=== PATIENT | female | born 2000 | race American Indian/Alaskan Native ===

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

== ENCOUNTER 2018-05-09 21:57 | Emergency (ER) | payer MEDICAID, OTHER ==
[2018-05-09 21:57] VITALS: BMI 24.3
[2018-05-09 22:09] VITALS: BP 132/78; PULSE 82; RESP 20; TEMP 99.2; O2SAT 100
[2018-05-09 22:28] LABS: HCG,QUALITATIVE URINE NEGATIVE (NEGATIVE)
[2018-05-09 22:30] LABS: SQUAMOUS EPITHIAL 3 /hpf (0-5); URINE AMORPHOUS SEDIMENT RARE /ul (<OCC); URINE BILIRUBIN NEGATIVE (NEGATIVE); URINE BLOOD NEGATIVE (NEGATIVE); URINE CLARITY Hazy (Clear); URINE COLOR Yellow (YELLOW); URINE GLUCOSE (UA) NORMAL (Normal); URINE LEUKOCYTE ESTERASE NEG Leu/uL (Negative); URINE PROTEIN NEGATIVE (NEGATIVE); URINE UROBILINOGEN NORMAL mg/dL (0.2-1.0)
--- NOTE | 2018-05-09 22:46 | C.PDOC ---
History Of Present Illness 18 year old female presents to the ER with a complaint of right lower back pain for the past 2 days. Patient states she has Hx of UTI and is concerned she may have one now. Denies hematuria, dysuria, vaginal complaints, fever, nausea, vomiting, or abdominal pain. Time Seen by Provider: 05/09/18 22:22 Chief Complaint (Nursing): Female Genitourinary History Per: Patient History/Exam Limitations: no limitations Onset/Duration Of Symptoms: Days Current Symptoms Are (Timing): Still Present Quality Of Discomfort: Unable To Describe Exacerbating Factor(s): Movement Recent travel outside of the [place]: No Past Medical History Reviewed: Historical Data, Nursing Documentation, Vital Signs Vital Signs: Last Vital Signs Temp 99.2 F 05/09/18 22:06 Pulse 82 05/09/18 22:06 Resp 20 05/09/18 22:06 BP 132/78 05/09/18 22:06 Pulse Ox 100 05/09/18 23:53 Family History: States: Unknown Family Hx - Social History Hx Tobacco Use: No Hx Alcohol Use: No Hx Substance Use: Yes (MARIJUANA USE) - Immunization History Hx Tetanus Toxoid Vaccination: Yes Hx Influenza Vaccination: No Hx Pneumococcal Vaccination: No Review Of Systems Constitutional: Negative for: Fever, Chills Gastrointestinal: Negative for: Nausea, Vomiting, Abdominal Pain Genitourinary: Negative for: Dysuria, Hematuria, Vaginal Discharge, Vaginal Bleeding Musculoskeletal: Positive for: Back Pain (Right lower) Physical Exam - Physical Exam Appears: Non-toxic Skin: Normal Color, Warm, Dry Head: Atraumatic, Normacephalic Eye(s): bilateral: Normal Inspection Oral Mucosa: Moist Gastrointestinal/Abdominal: Soft, No Tenderness Back: No CVA Tenderness, Paraspinal Tenderness (Right lumbar) Pelvic: Other (pt refused) Extremity: Normal ROM (x4) Neurological/Psych: Oriented x3, Normal Speech Gait: Steady ED Course And Treatment O2 Sat by Pulse Oximetry: 100 (Room air) Pulse Ox Interpretation: Normal Progress Note: UA ordered, results were within normal limits, urine culture sent. Patient is resting in comfortably in no acute distress, afebrile, vitals are stable, will discharge with instructions to follow up with PMD or return if symptoms of UTI occur. Disposition Counseled Patient/Family Regarding: Diagnosis, Need For Followup - Disposition Referrals: [facility] [Outside] Disposition: HOME/ ROUTINE Disposition Time: 22:44 Condition: STABLE Additional Instructions: Please follow up with PMD or in clinic Take all medications as directed Return to ER if burning on urination, blood when urinating, fever, vomiting, abdominal pain or worse Prescriptions: Ibuprofen [Motrin] 600 mg PO Q6H #20 tab Instructions: Low Back Pain (DC) Forms: [employer] (Ethiopian) - Clinical Impression Clinical Impression: Back pain - PA / BISTRO SERVER / Resident Statement MD/DO has reviewed & agrees with the documentation as recorded. - Scribe Statement The provider has reviewed the documentation as recorded by the Scribnico Mantilla All medical record entries made by the Temo were at my direction and personally dictated by me. I have reviewed the chart and agree that the record accurately reflects my personal performance of the history, physical exam, medical decision making, and the department course for this patient. I have also personally directed, reviewed, and agree with the discharge instructions and disposition.
== END 2018-05-09 22:53 | disposition home or self-care (01) ==
LOC: C.ER 21:57
DX: M54.5 Low back pain (principal)

== ENCOUNTER 2018-05-20 14:22 | Emergency (ER) | payer MEDICAID ==
[2018-05-20 14:22] VITALS: BMI 24.3
[2018-05-20 15:08] VITALS: BP 142/81; PULSE 71; RESP 18; TEMP 98.7; O2SAT 100
--- NOTE | 2018-05-20 15:49 | C.PDOC ---
History Of Present Illness 18yo female, comes to ER with complaints of nasal congestion, throat pain and a dry cough. She also reports a subjective fever and feels as if she has a "sinus infection." Otherwise, she denies any chest pain, shortness of breath or abdominal pain and offers no other medical complaints. Time Seen by Provider: 05/20/18 15:10 Chief Complaint (Nursing): ENT Problem History Per: Patient History/Exam Limitations: None Onset/Duration Of Symptoms: Hrs Current Symptoms Are (Timing): Still Present Quality (Mouth/Throat): Other (throat pain and dry cough) Past Medical History Reviewed: Historical Data, Nursing Documentation, Vital Signs Vital Signs: Last Vital Signs Temp 98.7 F 05/20/18 15:04 Pulse 71 05/20/18 15:04 Resp 18 05/20/18 15:04 BP 142/81 05/20/18 15:04 Pulse Ox 100 05/20/18 17:29 Family History: States: Unknown Family Hx - Social History Hx Tobacco Use: No Hx Alcohol Use: No Hx Substance Use: Yes - Immunization History Hx Tetanus Toxoid Vaccination: No Hx Influenza Vaccination: No Hx Pneumococcal Vaccination: No Review Of Systems Constitutional: Positive for: Fever ENT: Positive for: Nose Discharge (clear), Nose Congestion, Throat Pain Respiratory: Positive for: Cough (dry ) Physical Exam - Physical Exam Appears: Non-toxic, No Acute Distress Skin: Normal Color, Warm, Dry Head: Normacephalic, Other (mild bilateral frontal sinus tenderness) Eye(s): bilateral: Normal Inspection, PERRL, EOMI Ear(s): Bilateral: Normal Nose: Discharge (clear), Other (congestion) Throat: Erythema (mild), No Exudate, Other (enlarged tonsils) Neck: Normal ROM, Supple Chest: Symmetrical, No Deformity Cardiovascular: Rhythm Regular Respiratory: Normal Breath Sounds, No Rales, No Rhonchi, No Wheezing Gastrointestinal/Abdominal: Soft, No Tenderness Extremity: Normal ROM (x4), No Tenderness, No Swelling Neurological/Psych: Oriented x3, Normal Speech, Normal Cognition, Normal Motor, Normal Sensation ED Course And Treatment O2 Sat by Pulse Oximetry: 100 (RA) Pulse Ox Interpretation: Normal Medical Decision Making Medical Decision Making: Impression: Cough, nasal congestion Plan: -- Motrin 600mg PO -- Upreg POC UPreg test negative. On reassessment, patient reports improvement in symptoms and is stable for discharge home. Instructed to take medications as prescribed and to follow up with PMD in 2-3 days. Disposition Counseled Patient/Family Regarding: Diagnosis, Need For Followup, Rx Given - Disposition Referrals: [facility] [Outside] Disposition: HOME/ ROUTINE Disposition Time: 15:46 Condition: GOOD Additional Instructions: Please take ibuprofen for pain everry 6 hours if needed. Take ClaritinD As prescribed Drink increase fluids. Follow up in medical clinic. . Prescriptions: Ibuprofen [Motrin] 600 mg PO TID #30 tab Loratadine/Pseudoephedrine [Claritin-D 24 Hour Tablet] 1 each PO DAILY #10 tab.er.24h Instructions: Cough, Runny Nose, and the Common Cold (DC) Forms: [employer] (Mongolian), General Discharge Instructions - Clinical Impression Clinical Impression: Upper respiratory infection - PA / WOOD COATER / Resident Statement / has reviewed & agrees with the documentation as recorded. - Scribe Statement The provider has reviewed the documentation as recorded by the Temo Florez Do All medical record entries made by the Scribe were at my direction and personally dictated by me. I have reviewed the chart and agree that the record accurately reflects my personal performance of the history, physical exam, medical decision making, and the department course for this patient. I have also personally directed, reviewed, and agree with the discharge instructions and disposition.
== END 2018-05-20 15:53 | disposition home or self-care (01) ==
LOC: C.ER 14:22
DX: J06.9 Acute upper respiratory infection, unspecified (principal)

== ENCOUNTER 2018-11-22 08:01 | Emergency (ER) | payer MEDICAID ==
[2018-11-22 08:01] VITALS: BMI 24.3
[2018-11-22 08:07] VITALS: RESP 18; O2SAT 100
[2018-11-22] MEDS ORDERED: cefTRIAXone (Rocephin) 250 mg Inj IM STA (08:42)
--- NOTE | 2018-11-22 08:42 | C.PDOC ---
History Of Present Illness 18 year old female presents to the ED for evaluation of persistent vaginal discharge associated with occasional left-sided flank pain for 4 weeks. The patient describes the discharge as brown and foul smelling. She notes prior MECHANICAL SERVICE REPRESENTATIVE visit for the same symptoms where she was prescribed Flagyl 1 week ago, notes no improvement or change in symptoms. Denies unprotected sex, vaginal bleeding, fever, chills, and any other associated symptoms. PERSIST VAG DC X 4 WEEKS. BROWN, FOUL SMELLING. SAW OBGYN FOR SAME, SP FLAGYL X 1 WEEK BUT NO IMPROVE OR CHANGE IN SX. +ASSOC OCC L FLANK PAIN. HO UNPROTECTED SEX. NO OTHER ASSOC SX EXAM NEG Time Seen by Provider: 11/22/18 08:14 Chief Complaint (Nursing): Female Genitourinary History Per: Patient History/Exam Limitations: no limitations Onset/Duration Of Symptoms: Days (x4 weeks), Persistent Current Symptoms Are (Timing): Still Present Recent travel outside of the [place]: No Past Medical History Reviewed: Historical Data, Nursing Documentation, Vital Signs Vital Signs: Last Vital Signs Temp 97.3 F L 11/22/18 08:03 Pulse 84 11/22/18 08:03 Resp 18 11/22/18 08:03 BP 118/78 11/22/18 08:03 Pulse Ox 100 11/22/18 08:03 Family History: States: Unknown Family Hx - Social History Hx Tobacco Use: No Hx Alcohol Use: No Hx Substance Use: Yes - Immunization History Hx Tetanus Toxoid Vaccination: No Hx Influenza Vaccination: No Hx Pneumococcal Vaccination: No Review Of Systems Except As Marked, All Systems Reviewed And Found Negative. Constitutional: Negative for: Fever, Chills Genitourinary: Positive for: Vaginal Discharge (brown and foul smelling. ). Negative for: Vaginal Bleeding Musculoskeletal: Positive for: Back Pain (left-sided flank pain. ) Physical Exam - Physical Exam Appears: Well, Non-toxic, No Acute Distress Skin: Normal Color, Warm, Dry Head: Atraumatic, Normacephalic Eye(s): bilateral: Normal Inspection Oral Mucosa: Moist Neck: Normal ROM, Supple Chest: Symmetrical, No Deformity Cardiovascular: Rhythm Regular, No Murmur Respiratory: Normal Breath Sounds, No Rales, No Rhonchi, No Wheezing, Other (NARD) Gastrointestinal/Abdominal: Normal Exam, Soft, No Tenderness Extremity: Bilateral: Atraumatic, Normal Color And Temperature, Normal ROM Neurological/Psych: Oriented x3, Normal Speech, Normal Cognition ED Course And Treatment O2 Sat by Pulse Oximetry: 100 (RA) Pulse Ox Interpretation: Normal Medical Decision Making Medical Decision Making: Plan: -Rocephine -Zithromax -Urinalysis -HCG Urine Progress/Update: Patient stable for discharge home. Prescribed Clindamycin. Advised to follow up with MECHANICAL SERVICE REPRESENTATIVE. Advised to return to the ED if symptoms worsen. Disposition Counseled Patient/Family Regarding: Diagnosis, Need For Followup, Rx Given - Disposition Referrals: YOUR,OBGYN [Other] Disposition: HOME/ ROUTINE Disposition Time: 10:20 Condition: GOOD Prescriptions: Clindamycin 2% 40 applic VG HS #7 tube Instructions: Bacterial Vaginosis (DC) Forms: [employer] (Gabonese) - Clinical Impression Clinical Impression: Vaginal discharge - Scribe Statement The provider has reviewed the documentation as recorded by the Scribe (Emma De La Rosa) Provider Attestation: All medical record entries made by the Scribe were at my direction and personally dictated by me. I have reviewed the chart and agree that the record accurately reflects my personal performance of the history, physical exam, medical decision making, and the department course for this patient. I have also personally directed, reviewed, and agree with the discharge instructions and disposition.
[2018-11-22 09:17] LABS: HCG,QUALITATIVE URINE NEGATIVE (NEGATIVE)
[2018-11-22 10:16] LABS: SQUAMOUS EPITHIAL 3 /hpf (0-5); URINE BACTERIA RARE (<OCC); URINE BILIRUBIN NEGATIVE (NEGATIVE); URINE BLOOD NEGATIVE (NEGATIVE); URINE CLARITY Clear (Clear); URINE COLOR Yellow (YELLOW); URINE GLUCOSE (UA) NORMAL (Normal); URINE LEUKOCYTE ESTERASE NEG Leu/uL (Negative); URINE PROTEIN 1+ mg/dL (NEGATIVE)
[2018-11-22 10:27] VITALS: BP 125/80; PULSE 72; TEMP 98.8
== END 2018-11-22 10:37 | disposition home or self-care (01) ==
LOC: C.ER 08:01
DX: N89.8 Other specified noninflammatory disorders of vagina (principal)
CPT/HCPCS: 81001; 84703; 87086; 96372; 99283; J0696